=== PATIENT | female | born 1985 | race Caucasian/White ===

== ENCOUNTER 2017-03-05 11:36 | Emergency (ER) | payer MEDICAID ==
[~2017-03-05] VITALS: Ht 165.1 cm; Wt 81.6 kg
--- NOTE | 2017-03-05 12:25 | NUR ---
DR ALEXANDRE AT BEDSIDE FOR EVAL.
[2017-03-05] MEDS ORDERED: IBUPROFEN 600 MG TABLET PO ONE ×2 (12:30→12:37)
[2017-03-05] MEDS ORDERED: ONDANSETRON 4 MG TAB.RAPDIS SL ONE (12:30)
[2017-03-05] MEDS ORDERED: ONDANSETRON 4 MG TAB.RAPDIS ONE (12:36)
[2017-03-05 12:37] LABS: APPEARANCE,URINE Cloudy (CLEAR); BILIRUBIN,URINE Negative (NEGATIVE); BLOOD, URINE Large Ery/uL (NEGATIVE); COLOR,URINE Yellow (YELLOW); KETONES,URINE Trace (NEGATIVE); LEUKOCYTE ESTERASE ,URINE Large (NEGATIVE); NITRITE, URINE Positive (NEGATIVE); PH,URINE 5.5 (5.0-8.0); PROTEIN,URINE 100 mg/dl (NEGATIVE); UGLUCOSE Negative (NEGATIVE); UROBILINOGEN,URINE 0.2 EU/dL (0.2)
[2017-03-05 12:39] LABS: PREGNANCY TEST URINE QUAL NEGATIVE (NEGATIVE)
[2017-03-05 12:46] LABS: ADD URINE CULTURE YES; BACTERIA,URINE 2+ /HPF (None Seen); URINE AMORPHOUS URATE Moderate /HPF (None Seen); WBC,URINE 51-80 /HPF (0-3)
[2017-03-05 13:27] VITALS: BP 126/85
== END 2017-03-05 13:28 | disposition home or self-care (01) ==
LOC: ER 11:39
DX: N12 Tubulo-interstitial nephritis, not specified as acute or chronic (principal)
CPT/HCPCS: 81000-TC; 84703-TC; 87086-TC; 87186-TC; A4606; Q0162; Z7610

== ENCOUNTER 2017-06-24 00:03 | Emergency (ER) | payer MEDICAID, OTHER ==
[~2017-06-24] VITALS: Ht 167.6 cm; Wt 59.0 kg
--- NOTE | 2017-06-24 00:19 | NUR ---
BB ; PT C/O BILAT FLANK PAIN X 2 DAYS. PT AOX3 RR EVEN AND UNLABORED. NO SOB NOTED. NAD NOTED. NO NVD AT THIS TIME. PT GOWNED AND PLACED ON MONITOR WAITING FOR MD WEBB. URINE COLLECTED.
[2017-06-24] MEDS ORDERED: ACETAMINOPHEN ES 500 MG TABLET ONE (00:51)
[2017-06-24] MEDS ORDERED: ONDANSETRON 4 MG TAB.RAPDIS ONE (00:59)
--- NOTE | 2017-06-24 00:59 | NUR ---
VERBAL ORDERS PER DR. FRAZIER TO GIVE PT OTD ZOFRAN 4MG, PT FEELING NAUSEOUS
[2017-06-24] MEDS ORDERED: ACETAMINOPHEN 325 MG TABLET PO ONE (01:00)
--- NOTE | 2017-06-24 01:05 | NUR ---
Patient discharged to home in stable condition. Written and verbal after care instructions given. Patient verbalizes understanding of instruction. ambulatory with a steady gait. pt accompanied by
[2017-06-24 01:06] VITALS: BP 109/68
[2017-06-24] MEDS ORDERED: ONDANSETRON 4 MG TAB.RAPDIS SL ONE (01:30)
== END 2017-06-24 01:06 | disposition home or self-care (01) ==
LOC: ER 00:03
DX: M54.5 Low back pain (principal); M62.830 Muscle spasm of back
CPT/HCPCS: A4606; Q0162; Z7610